=== PATIENT | female | born 1990 ===

== ENCOUNTER 2018-10-04 17:57 | Emergency (ER) | payer OTHER ==
[~2018-10-04] VITALS: Ht 157.5 cm; Wt 56.7 kg
== END 2018-10-04 21:43 | disposition home or self-care (01) ==
LOC: ER 17:57
DX: N60.12 Diffuse cystic mastopathy of left breast (principal)

== ENCOUNTER 2020-02-19 15:30 | Emergency (ER) | payer OTHER ==
[~2020-02-19] VITALS: Ht 160 cm; Wt 52.2 kg
[2020-02-19] MEDS ORDERED: LEXAPRO5 MG PO (15:41)
== END 2020-02-19 21:49 | disposition home or self-care (01) ==
LOC: ER 15:30
DX: H92.01 Otalgia, right ear (principal); H61.21 Impacted cerumen, right ear; Z03.818 Encounter for observation for suspected exposure to other biological agents ruled out

== ENCOUNTER → 2020-02-20 | Emergency (ER) | payer OTHER ==
[~2020-02-20] MED LIST: LEXAPRO5 MG PO
== END | disposition left against medical advice (07) ==
LOC: ER 23:58
DX: Z53.20 Procedure and treatment not carried out because of patient's decision for unspecified reasons (principal)

== ENCOUNTER → 2020-10-26 | Emergency (ER) | payer OTHER ==
[~2020-10-26] VITALS: Ht 160 cm; Wt 52.2 kg
[~2020-10-26] MED LIST changes: +MOMETASONE FURO15 G1 TOP; +ORASEP SPRAY30 ML MM; +ZYNCOF 20-400120 ML PO
== END | disposition home or self-care (01) ==
LOC: ER 01:10
DX: J06.9 Acute upper respiratory infection, unspecified (principal); Z20.822 Contact with and (suspected) exposure to COVID-19

== ENCOUNTER 2022-04-08 12:16 | Emergency (ER) | payer OTHER ==
[~2022-04-08] VITALS: Ht 160 cm; Wt 54.4 kg
== END 2022-04-08 14:17 | disposition home or self-care (01) ==
LOC: ER 12:16
DX: H60.8X1 Other otitis externa, right ear (principal)

== ENCOUNTER 2022-07-15 23:57 | Emergency (ER) | payer OTHER ==
[~2022-07-15] VITALS: Ht 160 cm; Wt 54.4 kg
== END 2022-07-16 03:28 | disposition home or self-care (01) ==
LOC: ER 23:57
DX: J06.9 Acute upper respiratory infection, unspecified (principal)

== ENCOUNTER 2022-09-03 16:47 | Emergency (ER) | payer OTHER ==
[~2022-09-03] VITALS: Ht 160 cm; Wt 54.4 kg
== END 2022-09-03 21:08 | disposition home or self-care (01) ==
LOC: ER 16:47
DX: T19.2XXA Foreign body in vulva and vagina, initial encounter (principal); X58.XXXA Exposure to other specified factors, initial encounter; Y93.9 Activity, unspecified; Y92.9 Unspecified place or not applicable; Y99.9 Unspecified external cause status